=== PATIENT | female | born 2000 | race Caucasian/White ===

== ENCOUNTER 2023-09-15 06:22 | Day surgery (SDC) | payer OTHER, SELFPAY ==
[2023-09-15] VITALS (12 sets, daily range): BP systolic 95–135; BP diastolic 57–91; BMI 22.5
[2023-09-15] MEDS: NORMOSOL-R 1000 IV (07:27)
[2023-09-15] MEDS: ZOFRAN 4 MG IV (10:48)
== END 2023-09-15 12:20 | disposition home or self-care (01) ==
LOC: SDS 06:22
PROVIDERS: ATTENDING PHYSICIAN Otolaryngology; FAMILY PHYSICIAN Pediatrics
DX: J35.01 Chronic tonsillitis (principal); J35.8 Other chronic diseases of tonsils and adenoids
CPT/HCPCS: 42826; 88304